=== PATIENT | female | born 1955 | race Hispanic/Latino ===

== ENCOUNTER → 2023-12-05 | Outpatient (CLI) | payer OTHER | END | disposition home or self-care (01) | LOC: SHCH 10:55 | PROVIDERS: ATTEND Student in an Organized Health Care Education/Training Program | DX: I11.9 Hypertensive heart disease without heart failure (principal); R60.9 Edema, unspecified | CPT/HCPCS: 93306 ==

== ENCOUNTER 2024-01-27 09:52 | Emergency (ER) | payer OTHER ==
[~2024-01-27] VITALS: Ht 167.6 cm; Wt 77.6 kg
[2024-01-27] MEDS ORDERED: IBUP-2071 PO (12:46)
[2024-01-27 13:26] VITALS: BP 154/51; PULSE 65; RESP 17; O2SAT 98
[2024-01-27] MEDS: ACETAMINOPHEN 500 MG TABLET PO ONE (13:41)
[2024-01-27] MEDS: KETOROLAC 60 MG VIAL (30MG/ML) IM ONE (13:42)
== END 2024-01-27 14:23 | disposition home or self-care (01) ==
LOC: EDH 09:52
DX: S63.592A Other specified sprain of left wrist, initial encounter (principal); S00.531A Contusion of lip, initial encounter; S80.02XA Contusion of left knee, initial encounter; I10 Essential (primary) hypertension; E11.9 Type 2 diabetes mellitus without complications; K21.9 Gastro-esophageal reflux disease without esophagitis; M19.031 Primary osteoarthritis, right wrist; Z90.49 Acquired absence of other specified parts of digestive tract; Z98.890 Other specified postprocedural states; W18.39XA Other fall on same level, initial encounter; Y93.89 Activity, other specified; Y92.89 Other specified places as the place of occurrence of the external cause; Y99.8 Other external cause status
CPT/HCPCS: 99284; 73562; 73110; 29125; 96372; J1885